=== PATIENT | male | born 1975 | race Caucasian/White ===

== ENCOUNTER 2018-11-20 10:40 | Outpatient (CLI) | payer MEDICAID, SELFPAY ==
[2018-11-20 13:10] LABS: Bilirubin Negative (Negative); Blood Negative (Negative); Clarity Clear (Clear); Glucose Negative (Negative); Ketones Negative (Negative); Leukocyte Esterase Negative (Negative); Nitrite Negative (Negative); Urobilinogen 0.2 EU/dL (Up TO 0.2); pH 5.5 (5-8)
[2018-11-20 13:18] LABS: Abs Immature Grans 0.02 k/cumm (0.0-0.09); Absolute Basophil Count 0.02 k/cumm (0.0-0.2); Absolute Eosinophil Count 0.04 k/cumm (0.0-0.7); Absolute Lymphocyte Count 1.25 k/cumm (1.2-3.4); Absolute Monocyte Count 0.69 k/cumm (0.11-0.7); Absolute Neutrophil Count 3.76 k/cumm (1.2-6.7); Basophils % 0.3; Eosinophils % 0.7; HCT 45.8 % (40.0-50.0); HGB 15.5 g/dL (13.5-17.5); Immature Grans % 0.3; Lymphocytes % 21.6; Mean Corp. HGB Concentration 33.8 g/dL (32.0-36.0); Mean Corpuscular Hemoglobin 31.9 pg (27.0-33.0); Mean Corpuscular Volume 94.2 fL (80-95); Mean Platelet Volume 10.8 fL (8.0-11.0); Monocytes % 11.9; Neutrophils % 65.2; Platelet Count 194 x1000/uL (130-400); RBC 4.86 m/cumm (4.50-6.00); RBC Distribution Width 12.7 % (11.8-14.1); White Blood Cell Count 5.78 k/cumm (4.4-10.8)
[2018-11-20 14:19] LABS: ALT 26 U/L (16-63); AST 13 U/L (15-37); Albumin 4.1 g/dL (3.4-5.0); Alkaline Phosphatase 69 U/L (46-116); Anion Gap 9.5 mmol/L (3-11); BUN 12 mg/dL (7-18); Bilirubin, Total 0.3 mg/dL (0.2-1.0); CO2 27.5 mmol/L (21.0-32.0); CREATININE 0.92 mg/dL (0.70-1.30); Calcium 9.1 mg/dL (8.5-10.1); Calculated LDL 102 mg/dL; Chloride 104 mmol/L (98-107); Cholesterol 189 mg/dL (50-200); Glucose 80 mg/dL (70-100); HDL Cholesterol 39 mg/dL (40-60); Potassium 4.4 mmol/L (3.5-5.1); Sodium 141 mmol/L (136-145); TSH (W/Ref FT4) 1.01 uIU/mL (0.36-3.74); Total Protein 7.2 g/dL (6.4-8.2); Triglyceride 244 mg/dL (30-150)
[2018-11-20 14:40] LABS: C-Reactive Protein < 0.05 mg/dL (0.0-0.3)
[2018-11-21 11:13] LABS: Lyme Ab w Rflx to Lyme Confirm Positive
[2018-11-23 15:50] LABS: IgG Band(s) SEE COMMENTS kDa; IgG Immunoblot Positive; IgM Band(s) p23 kDa; IgM Immunoblot Negative; Immunoblot Interpretation SEE COMMENTS
== END 2018-11-20 11:00 ==
PROVIDERS: PCP Emergency Medicine; Visit Provider Family Medicine
DX: R53.83 Other fatigue (principal); R39.11 Hesitancy of micturition; M25.50 Pain in unspecified joint
CPT/HCPCS: 36415; 80053; 80061; 86617; 81003; 84443; 85025; 86140; 86618

== ENCOUNTER 2019-11-26 11:57 | Outpatient (REF) | payer MEDICAID, SELFPAY ==
[2019-11-26 13:14] LABS: Abs Immature Grans 0.01 10^3/uL (0.0-0.06); Absolute Basophil Count 0.02 10^3/uL (0.0-0.2); Absolute Eosinophil Count 0.08 10^3/uL (0.0-0.7); Absolute Lymphocyte Count 1.57 10^3/uL (1.2-3.4); Absolute Monocyte Count 0.56 10^3/uL (0.1-0.8); Basophils % 0.4; Eosinophils % 1.6; HCT 45.8 % (40.0-50.0); HGB 15.5 g/dL (13.5-17.5); Immature Grans % 0.2; Lymphocytes % 31.8; MCH 31.8 pg (27.0-33.0); MCHC 33.8 % (32.0-36.0); MCV 93.9 fL (80-95); MPV 10.8 fL (8.0-11.0); Monocytes % 11.3; Neutrophils % 54.7; Nucleated RBC 0 %; Platelet Count 168 10^3/uL (130-400); RBC 4.88 10^6/uL (4.36-5.78); RDW-SD 41.4 fL; WBC 4.94 10^3/uL (4.4-10.8)
[2019-11-26 13:48] LABS: ALT 27 U/L (16-63); AST 15 U/L (15-37); Albumin 4.3 g/dL (3.4-5.0); Alkaline Phosphatase 65 U/L (46-116); BUN 14 mg/dL (7-18); Bilirubin, Total 0.4 mg/dL (0.2-1.0); CREATININE 0.79 mg/dL (0.70-1.30); Chloride 106 mmol/L (98-107); Glucose 86 mg/dL (74-106); Potassium 4.2 mmol/L (3.5-5.1); Sodium 141 mmol/L (136-145); TSH 1.04 uIU/mL (0.36-3.74); Total Protein 7.2 g/dL (6.4-8.2)
[2019-11-26 13:58] LABS: C-Reactive Protein < 0.05 mg/dL (0.0-0.3)
[2019-11-26 17:28] LABS: Rheumatoid Factor <8.6 IU/mL (<12.0)
[2019-11-27 11:05] LABS: Lyme Ab w Rflx to Lyme Confirm Positive (Negative)
[2019-11-29 14:55] LABS: IgG Band(s) p93; IgG Immunoblot Positive (Negative); IgM Band(s) p23; IgM Immunoblot Negative (Negative)
== END 2019-11-26 12:17 ==
LOC: LBN 11:57
PROVIDERS: PCP Emergency Medicine; Visit Provider Emergency Medicine
DX: R53.83 Other fatigue (principal); E03.9 Hypothyroidism, unspecified; M25.532 Pain in left wrist; M25.531 Pain in right wrist; M25.552 Pain in left hip; M25.551 Pain in right hip
CPT/HCPCS: 80053; 86617; 84443; 85025; 86140; 86431; 86618

== ENCOUNTER 2022-11-23 03:41 | Outpatient (CLI) | payer MEDICAID, SELFPAY ==
[2022-11-23 10:57] LABS: Hemoglobin A1C 5.5 % (<5.7)
[2022-11-23 11:02] LABS: Calculated LDL 179 mg/dL (<100); Cholesterol 245 mg/dL (<200); HDL Cholesterol 48 mg/dL (40-60); TSH (W/Ref FT4) 1.19 uIU/mL (0.36-3.74); Triglyceride 92 mg/dL (<150)
== END 2022-11-23 03:42 | disposition home or self-care (01) ==
PROVIDERS: PCP Nurse Practitioner Family; Visit Provider Nurse Practitioner Family
DX: Z13.220 Encounter for screening for lipoid disorders (principal); Z13.1 Encounter for screening for diabetes mellitus; R53.83 Other fatigue
CPT/HCPCS: 36415; 80061; 83036; 84443

== ENCOUNTER 2023-11-23 02:04 | Outpatient (CLI) | payer MEDICAID, SELFPAY ==
[2023-11-23 11:08] LABS: Lab Add On Test DONE
[2023-11-23 12:54] LABS: ALT 28 U/L (16-63); AST 17 U/L (15-37); Alkaline Phosphatase 70 U/L (46-116); Anion Gap 10.7 mmol/L (3-11); BUN 14 mg/dL (7-18); Bilirubin, Total 0.66 mg/dL (0.2-1.0); CO2 26.3 mmol/L (21.0-32.0); CREATININE 0.9 mg/dL (0.70-1.30); Calcium 9.1 mg/dL (8.5-10.1); Chloride 106 mmol/L (98-107); Estimated GFR 106.01 (mL/min/1.73m2); Glucose 94 mg/dL (74-106); Potassium 4.3 mmol/L (3.5-5.1); Sodium 143 mmol/L (136-145)
[2023-11-23 13:04] LABS: Calculated LDL 157 mg/dL (<100); Cholesterol 222 mg/dL (<200); HDL Cholesterol 49 mg/dL (40-60); Triglyceride 80 mg/dL (<150)
[2023-11-23 13:23] LABS: Hemoglobin A1C 5.4 % (<5.7)
== END 2023-11-23 02:05 | disposition home or self-care (01) ==
LOC: LOS 02:05
PROVIDERS: PCP Nurse Practitioner Family; Visit Provider Nurse Practitioner Family
DX: Z13.220 Encounter for screening for lipoid disorders (principal); Z13.1 Encounter for screening for diabetes mellitus; B94.8 Sequelae of other specified infectious and parasitic diseases; F32.A Depression, unspecified
CPT/HCPCS: 36415; 80053; 80061; 83036